=== PATIENT | male | born 1975 | race Caucasian/White ===

== ENCOUNTER 2020-10-19 15:11 | Emergency (ER) | payer OTHER ==
[2020-10-19 15:42] VITALS: BMI 29.9
[2020-10-19] MEDS ORDERED: DEXAMETHASONE SOD PHOSPHATE 10 MG/1 ML VIAL IM ONE (16:08)
[2020-10-19] MEDS ORDERED: DEXAMETHASONE SOD PHOSPHATE 4 MG/1 ML VIAL IVPUSH ONE (16:52)
[2020-10-19] MEDS ORDERED: DEXAMETHASONE SOD PHOSPHATE 10 MG/1 ML VIAL ONE (16:54)
[2020-10-19 17:05] LABS: BASO % 0.1 % (0-2.0); HEMATOCRIT 48.6 % (35.4-49); HEMOGLOBIN 16.7 GM/dL (11.7-16.9); LYMPH % 10.6 % (8-40); MCH 31.6 pg (25.7-33.7); MCHC 34.4 g/dl (32.0-35.9); MEAN CELL VOLUME 91.9 fl (80-96); MEAN PLT VOLUME 8.7 fl (7.5-11.1); MONO % 10.4 % (3.8-10.2); NEUT % 78.9 % (42.8-82.8); PLATELET COUNT 293 K/MM3 (134-434); RBC 5.29 M/mm3 (4.00-5.60); RDW 13.1 % (11.9-15.9)
[2020-10-19 17:26] LABS: CHLORIDE 105 mmol/L (98-107); SODIUM 138 mmol/L (136-145)
[2020-10-19 17:30] LABS: ALBUMIN 3.7 g/dl (3.4-5.0); ANION GAP 8 MMOL/L (8-16); BLOOD UREA NITROGEN 15.1 mg/dL (7-18); CO2 25 mmol/L (21-32); GLUCOSE,RANDOM 161 mg/dL (74-106)
[2020-10-19 17:32] LABS: CALCIUM 8.7 mg/dL (8.5-10.1); SGOT/AST 60 U/L (15-37); SGPT/ALT 131 U/L (13-61)
[2020-10-19 17:33] LABS: PLATELET ESTIMATE ADEQUATE
[2020-10-19 17:34] LABS: BILIRUBIN,TOTAL 0.3 mg/dL (0.2-1); LDH 384 U/L (87-246); TOT PROT 8.4 g/dl (6.4-8.2)
[2020-10-19 17:36] LABS: ALK PHOS 86 U/L (45-117)
[2020-10-19 18:56] VITALS: BP 156/96; PULSE 85; TEMP 98
== END 2020-10-19 18:45 | disposition home or self-care (01) ==
LOC: JER 15:11
PROC: 3E023NZ Introduction of Analgesics, Hypnotics, Sedatives into Muscle, Percutaneous Approach (ICD-10-PCS; principal; 2020-10-19)
PROC: 3E033NZ Introduction of Analgesics, Hypnotics, Sedatives into Peripheral Vein, Percutaneous Approach (ICD-10-PCS; 2020-10-19)
DX: U07.1 COVID-19 (principal)
CPT/HCPCS: 36415; 71046-TC-FY; 80053; 82550; 82553; 82728; 83615; 84484; 85025; 86140; 93005; 93010; 99285-25